=== PATIENT | male | born 1950 | race Caucasian/White ===

== ENCOUNTER → 2024-01-19 08:01 | Outpatient (REF) | payer OTHER, SELFPAY | LOC: DHCBS HW 08:01 | PROVIDERS: ATTENDING PHYSICIAN Internal Medicine Cardiovascular Disease; FAMILY PHYSICIAN Family Medicine | DX: I25.10 Atherosclerotic heart disease of native coronary artery without angina pectoris (principal) | CPT/HCPCS: 93306 ==

== ENCOUNTER → 2024-03-09 08:06 | Outpatient (REF) | payer OTHER, SELFPAY | LOC: EMG 08:06 | PROVIDERS: ATTENDING PHYSICIAN Internal Medicine Rheumatology; FAMILY PHYSICIAN Family Medicine | DX: R20.0 Anesthesia of skin (principal) | CPT/HCPCS: 95886; 95913 ==

== ENCOUNTER → 2024-03-10 06:47 | Outpatient (REF) | payer OTHER, SELFPAY | LOC: HWRAD 06:47 | PROVIDERS: ATTENDING PHYSICIAN Internal Medicine Rheumatology; FAMILY PHYSICIAN Family Medicine | DX: M15.9 Polyosteoarthritis, unspecified (principal); M47.812 Spondylosis without myelopathy or radiculopathy, cervical region; M51.36 Other intervertebral disc degeneration, lumbar region | CPT/HCPCS: 72050; 72100; 73523; 73560; 73565; 73610 ==

== ENCOUNTER → 2024-10-21 07:30 | Outpatient (REF) | payer OTHER, SELFPAY | LOC: HWRAD 07:30 | PROVIDERS: ATTENDING PHYSICIAN Internal Medicine Rheumatology; FAMILY PHYSICIAN Family Medicine | DX: Z13.820 Encounter for screening for osteoporosis (principal) | CPT/HCPCS: 77080; 77081 ==